=== PATIENT | female | born 1965 | race Caucasian/White ===

== ENCOUNTER 2023-12-14 10:15 | Emergency (ER) | payer OTHER, SELFPAY ==
[2023-12-14 10:23] VITALS: BP 102/67; PULSE 87; RESP 18; TEMP 36.4; O2SAT 99; BMI 28.6
[2023-12-14] MEDS: ONDANSETRON PF 4 MG/2 ML VIAL IV (10:42)
[2023-12-14] MEDS: 0.9 % SODIUM CHLORIDE 1,000 ML 999 ML IV (10:42)
--- NOTE | 2023-12-14 10:44 | XR_ITS ---
The [address] [address] Patient Name: ZOIE BUSTILLOS MRN: [id number] date: 1965 Sex: F Assigned Patient Location: ER Current Patient Location: ER Accession/Order Number: [id number] Exam Date: 12/14/2023 10:53 Report Date: 12/14/2023 11:12 At the request of: CARLOS KEY Procedure: XR chest 2V EXAM: Chest x-ray HISTORY: Nausea and vomiting. COMPARISON: None. TECHNIQUE: Frontal and lateral chest FINDINGS: Heart and vascularity are unremarkable. Lungs are free of focal infiltrates. Small granuloma are noted in both hilar regions and in the mid lung field. No acute bony abnormality is appreciated. XR/XR chest 2V IMPRESSION: 1. No acute heart or lung disease identified. 2. Old granulomatous disease. Electronically authenticated by: MAURO VEGA Date: 12/14/2023 11:12
--- NOTE | 2023-12-14 10:44 | ECG_ITS ---
The [facility] Test Date: 2023-12-14 Pat Name: ZOIE BUSTILLOS Department: Room: - Gender: Female Drugless Doctor: : 1965 Requested By: [id number] Order Number: [id number] Reading MD: CONOR CONROY Measurements Intervals Hatch Rate: 78 P: 33 NJ: 114 QRS: 54 QRSD: 88 T: 44 QT: 398 QTc: 431 Interpretive Statements 1100 Sinus rhythm 2210 Short NJ interval Remote inferolateral infarction can't be excluded 9150 abnormal ECG Electronically Signed On 12-15-2023 7:25:51 EDT by CONOR CONROY
[2023-12-14 10:51] LABS: Basophils Percent Auto 0.8 % (0.2-2.0); Eosinophils Percent Auto 0.8 % (0.9-7.0); Hematocrit 38.5 % (36.0-48.0); Hemoglobin 12.7 g/dL (12.0-16.0); Immature Granulocytes Abs Auto 0.01 10^3/uL (0.00-0.03); Immature Granulocytes Pct Auto 0.2 % (0.0-0.5); Lymphocytes Absolute Auto 2.5 10^3/uL (1.2-3.8); Lymphocytes Percent Auto 52.3 % (20.5-60.0); Mean Corpuscular Hemoglobin 31.6 pg (26.7-34.0); Mean Corpuscular Volume 95.8 fL (81.0-99.0); Mean Platelet Volume 10.4 fL (9.5-13.5); Monocytes Absolute Auto 0.5 10^3/uL (0.3-0.8); Monocytes Percent Auto 10.6 % (1.7-12.0); Neutrophils Absolute Auto 1.7 10^3/uL (1.4-6.5); Neutrophils Percent Auto 35.3 % (43.0-75.0); Platelet Count 310 10^3/uL (150-450); Red Blood Count 4.02 10^6/uL (4.20-5.40); Red Cell Distribution Width 12.9 % (11.0-15.0); White Blood Count 4.8 10^3/uL (4.0-11.0)
[2023-12-14 11:10] LABS: Alanine Aminotransferase 17 U/L (14-59); Albumin Globulin Ratio 0.9; Alkaline Phosphatase 68 U/L (46-116); Anion Gap 12.7; Aspartate Amino Transferase 16 U/L (15-37); Bilirubin Total 0.3 mg/dL (0.2-1.0); Calcium 8.1 mg/dL (8.5-10.1); Carbon Dioxide 25.8 mmol/L (21.0-32.0); Chloride 109 mmol/L (98-107); Estimated GFR (African America >60 (>=60); Estimated GFR (Non-African Ame >60 (>=60); Globulin 3.3 g/dL; Glucose 105 mg/dL (74-106); Potassium 3.5 mmol/L (3.5-5.1); Sodium 144 mmol/L (136-145); Total Protein 6.3 g/dL (6.4-8.2)
--- NOTE | 2023-12-14 11:16 | ED_ITS ---
HPI - General Adult General Chief complaint: Nausea/Vomiting/Diarrhea Stated complaint: NAUSEA/VOMITING Time Seen by Provider: 12/14/23 10:43 Source: patient Mode of arrival: walk-in History of Present Illness HPI narrative: Patient is a 57-year-old female who is presenting to the ER with chief complaint of 3 days of nausea, vomiting, diarrhea, diffuse abdominal cramping. Patient has not noticed the color of her emesis, no blood or obvious coffee-ground color noted. Patient states her diarrhea has been darker, not noted to be black. Loose stool. 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 Patient states she does not feel she is going through any withdrawal, she does not use any substance in the last 3 months, she is at a sober living home. Patient has no headache or lightheadedness. No chest pain or shortness of breath. Patient states there is diffuse mild cramping, she is not anything for pain at this time. Patient is having urinary frequency, but she also states that she has been drinking over a gallon of water a day besides the last 2 or 3 days. Patient does not have her appendix or uterus, she does have gallbladder and ovaries. No other acute complaints. All systems are negative except as noted/marked. All systems reviewed and otherwise negative. Nurses note and vital signs reviewed and patient is not hypoxic. General: The patient appears well and in no apparent distress. Patient is resting comfortably on cart. Patient is not toxic, lethargic, or listless Skin: Warm, dry, no pallor noted. There is no rash noted. No petechiae, purpura. Head: Normocephalic, atraumatic Eye: Normal conjunctiva, no drainage, EOMI. PERRL Ears, Nose, Mouth, and Throat: oral mucosa is slighlty dry. Nares patent. Mouth without vesicles. Cardiovascular: Regular Rate and Rhythm, no murmur, gallop, rub Respiratory: Patient is in no distress, no accessory muscle use, lungs are clear to auscultation, no wheezing, rales or rhonchi Back: non-tender, no CVA tenderness bilaterally to percussion. No CT LS midline pain GI: Obese, mild diffuse abdominal cramping, no pinpoint severe pain to any quadrant, mild suprapubic tenderness to palpation. No peritoneal signs, no flank pain bilateral, no rash, otherwise. tenderness to palpation, no masses appreciated. No rebound, guarding, or rigidity noted. No distention Musculoskeletal: Patient has full range of motion of all of the extremities, no motor, sensory, or focal neurological deficits Neurological: A&O x4, normal speech Psychiatric: Cooperative Related Data Home Medications Medication Instructions Recorded Confirmed quetiapine 200 mg tablet (Seroquel) 200 mg PO BID 12/14/23 12/14/23 venlafaxine 75 mg tablet 37.5 mg PO DAILY 12/14/23 12/14/23 venlafaxine 75 mg tablet 75 mg PO DAILY 12/14/23 12/14/23 Previous Rx's Medication Instructions Recorded cephalexin 500 mg capsule 500 mg PO Q12H 7 days #14 caps 12/14/23 dicyclomine 20 mg tablet 20 mg PO TID PRN abdominal pain #7 12/14/23 tabs ondansetron 4 mg disintegrating 4 mg PO Q4H PRN nausea and 12/14/23 tablet vomiting 3 days #6 tabs Allergies Allergy/AdvReac Type Severity Reaction Status Date / Time No Known Drug Allergies Allergy Verified 12/14/23 10:23 Exam Constitutional Vital Signs, click to edit/add: Last Vital Signs Temp 97.6 F 12/14/23 10:23 Pulse 87 12/14/23 10:23 Resp 18 12/14/23 10:23 BP 102/67 12/14/23 10:23 Pulse Ox 99 12/14/23 10:23 O2 Del Method Room Air 12/14/23 10:23 Course Vital Signs Vital signs: Vital Signs Temperature 97.6 F 12/14/23 10:23 Pulse Rate 87 12/14/23 10:23 Respiratory Rate 18 12/14/23 10:23 Blood Pressure 102/67 12/14/23 10:23 Pulse Oximetry 99 12/14/23 10:23 Oxygen Delivery Method Room Air 12/14/23 10:23 Temperature 97.6 F 12/14/23 10:23 Pulse Rate 87 12/14/23 10:23 Respiratory Rate 18 12/14/23 10:23 Blood Pressure 102/67 12/14/23 10:23 Pulse Oximetry 99 12/14/23 10:23 Oxygen Delivery Method Room Air 12/14/23 10:23 Medical Decision Making MDM Narrative Medical decision making narrative: Patient was given IV fluids, Zofran, Pepcid. Lab work and urine will be checked. EKG shows no acute findings. Patient has evidence of UTI. Patient's nausea and cramping have improved. Patient did not want any other additional medication for abdominal cramping. Patient was sent home with an antibiotic, nausea medication and belly cramping medicine. Patient will follow-up with PCP. Lab Data Lab results reviewed: Yes I reviewed the patient's lab results Labs: Lab Results 12/14/23 12/14/23 12/14/23 Range/Units 10:45 10:48 12:35 WBC 4.8 (4.0-11.0) 10^3/uL RBC 4.02 L (4.20-5.40) 10^6/uL Hgb 12.7 (12.0-16.0) g/dL Hct 38.5 (36.0-48.0) % MCV 95.8 (81.0-99.0) fL MCH 31.6 (26.7-34.0) pg MCHC 33.0 (29.9-35.2) g/dL RDW 12.9 (11.0-15.0) % Plt Count 310 (150-450) 10^3/uL MPV 10.4 (9.5-13.5) fL Neut % (Auto) 35.3 L (43.0-75.0) % Lymph % (Auto) 52.3 (20.5-60.0) % [place] % (Auto) 10.6 (1.7-12.0) % Eos % (Auto) 0.8 L (0.9-7.0) % Baso % (Auto) 0.8 (0.2-2.0) % Neut # (Auto) 1.7 (1.4-6.5) 10^3/uL Lymph # (Auto) 2.5 (1.2-3.8) 10^3/uL [place] # (Auto) 0.5 (0.3-0.8) 10^3/uL Eos # (Auto) 0.0 (0.0-0.7) 10^3/uL Baso # (Auto) 0.0 (0.0-0.1) 10^3/uL Abs Immat Gran (auto) 0.01 (0.00-0.03) 10^3/uL Imm/Tot Granulo (auto) 0.2 (0.0-0.5) % Sodium 144 (136-145) mmol/L Potassium 3.5 (3.5-5.1) mmol/L Chloride 109 H (98-107) mmol/L Carbon Dioxide 25.8 (21.0-32.0) mmol/L Anion Gap 12.7 BUN 20.0 H (7.0-18.0) mg/dL Creatinine 0.64 (0.55-1.02) mg/dL Est GFR ( Amer) >60 (>=60) Est GFR (Non-Af Amer) >60 (>=60) BUN/Creatinine Ratio 31.3 Glucose 105 (74-106) mg/dL Calcium 8.1 L (8.5-10.1) mg/dL Magnesium 1.8 (1.8-2.4) mg/dL Total Bilirubin 0.3 (0.2-1.0) mg/dL AST 16 (15-37) U/L ALT 17 (14-59) U/L Alkaline Phosphatase 68 (46-116) U/L Total Protein 6.3 L (6.4-8.2) g/dL Albumin 3.0 L (3.4-5.0) g/dL Globulin 3.3 g/dL Albumin/Globulin Ratio 0.9 Lipase 31.0 (16.0-77.0) U/L Urine Color Lt. yellow (YELLOW) Urine Clarity Clear (CLEAR) Urine pH 6.0 (5.0-9.0) Ur Specific Golf 1.020 (1.005-1.025) Urine Protein Negative (NEG/TRACE) mg/dL Urine Glucose (UA) Negative (NEGATIVE) mg/dL Urine Ketones Negative (NEGATIVE) mg/dL Urine Occult Blood Negative (NEGATIVE) Urine Nitrite Negative (NEGATIVE) Urine Bilirubin Negative (NEGATIVE) Urine Urobilinogen 0.2 (0.2-1.0) EU/dL Ur Leukocyte Esterase Moderate A (NEGATIVE) Urine RBC 0-2 (0-2) #/HPF Urine WBC 5-10 A (NONE SEEN) #/HPF Ur Squamous Epith Cells Few A (NONE/RARE) #/LPF Urine Crystals Seen A (None Seen) #/HPF Calcium Oxalate Crystal Moderate Uric Acid Crystals Moderate Urine Bacteria Large A (NONE SEEN) #/HPF Urine Casts None seen (NONE SEEN) #/LPF Urine Mucus None seen (NONE SEEN) ECG Data Attestation: I personally reviewed and interpreted this ECG as follows: (EKG interpretation. Normal sinus rhythm at 78 beats a minute. Normal axis deviation. No acute ST elevation, no acute ectopy. QTc of 431.) Discharge Plan Discharge Stand Alone Forms: Portal Instructions Chief Complaint: Nausea/Vomiting/Diarrhea Clinical Impression: UTI (urinary tract infection), Diarrhea, Nausea & vomiting Patient Disposition: Home, Self-Care Time of Disposition Decision: 13:48 Condition: Good Prescriptions / Home Meds: New cephalexin 500 mg capsule 500 mg PO Q12H 7 Days Qty: 14 0RF dicyclomine 20 mg tablet 20 mg PO TID PRN (Reason: abdominal pain) Qty: 7 0RF ondansetron 4 mg tablet,disintegrating 4 mg PO Q4H PRN (Reason: nausea and vomiting) 3 Days Qty: 6 0RF No Action venlafaxine 75 mg tablet 37.5 mg PO DAILY venlafaxine 75 mg tablet 75 mg PO DAILY quetiapine [Seroquel] 200 mg tablet 200 mg PO BID Instructions: Urinary Incontinence (ED), Acute Nausea and Vomiting (ED), Acute Diarrhea (ED) Additional Instructions: Increase fluids at home, Gatorade, Powerade, liquids. Start taking antibiotics today and finish antibiotics. Follow-up with and establish PCP. Referrals: Physician,Non-Staff, MD [Primary Care Provider] - 1 week
[2023-12-14 11:19] LABS: BUN Creatinine Ratio 31.3
[2023-12-14 11:25] LABS: Magnesium 1.8 mg/dL (1.8-2.4)
[2023-12-14] MEDS: FAMOTIDINE/PF 20 MG/2 ML VIAL IV (11:30)
[2023-12-14 12:47] LABS: Bilirubin Urine NEGATIVE (NEGATIVE); Blood Urine NEGATIVE (NEGATIVE); Clarity Urine CLEAR (CLEAR); Color Urine LT. YELLOW (YELLOW); Glucose Urine UA NEGATIVE (NEGATIVE); Ketones Urine NEGATIVE (NEGATIVE); Leukocyte Esterase Urine MODERATE (NEGATIVE); Nitrite Urine NEGATIVE (NEGATIVE); Protein Urine NEGATIVE (NEG/TRACE); Urobilinogen Urine 0.2 EU/dL (0.2-1.0)
[2023-12-14 13:09] LABS: Bacteria Urine LARGE #/HPF (NONE SEEN); Calcium Oxalate Crystals Urine MODERATE; Crystals Seen? Seen #/HPF (None Seen); Mucus Urine NONE SEEN (NONE SEEN); RBC Urine 0-2 #/HPF (0-2); Squamous Epithelial Cell Urine FEW #/LPF (NONE/RARE)
[2023-12-14 13:10] LABS: Cast Seen? NONE SEEN #/LPF (NONE SEEN); Uric Acid Crystals Urine MODERATE
[2023-12-14 13:49] VITALS: BP 122/79; PULSE 81; RESP 18; O2SAT 99
== END 2023-12-14 14:00 | disposition home or self-care (01) ==
PROVIDERS: Emergency Provider Emergency Medicine
DX: N39.0 Urinary tract infection, site not specified (principal); R19.7 Diarrhea, unspecified; R11.2 Nausea with vomiting, unspecified; Z79.899 Other long term (current) drug therapy
CPT/HCPCS: 36415; 71046; 80053; 81001; 83690; 83735; 85025; 87086; 93005; 96361; 96374; 96375; 99285